=== PATIENT | male | born 1965 ===

== ENCOUNTER → 2020-04-16 | Outpatient (CLI) | payer BC | LOC: ZCOL.LAB 15:58 | DX: Z20.828 Contact with and (suspected) exposure to other viral communicable diseases (principal) ==

== ENCOUNTER 2021-09-06 06:54 | Day surgery (SDC) | payer BC ==
[~2021-09-06] VITALS: Ht 190.5 cm; Wt 107.4 kg
[2021-09-06 08:45] VITALS: BP 106/89; PULSE 74; TEMP 97.5
--- NOTE | 2021-09-06 08:45 | NUR ---
Pt to [facility] via cart from [employer]. Pt ambulates to recliner with stand by assistance. Pt awake and alert. Denies pain or nausea. Muffin and water given per pt request. Call light within reach.
[2021-09-06 08:57] VITALS: BP 151/101; PULSE 81; TEMP 97.1
[2021-09-06 09:00] VITALS: BP 134/106; PULSE 76
--- NOTE | 2021-09-06 09:00 | NUR ---
Pt continues to rest. Denies needs. Call light within reach.
[2021-09-06 09:15] VITALS: BP 142/92; PULSE 69
--- NOTE | 2021-09-06 09:15 | NUR ---
Pt continues to rest. Denies needs. Call light within reach.
--- NOTE | 2021-09-06 09:25 | NUR ---
IV site DC instructions reviewed. PT voices understanding. IV site discontinued with all parts intact. Pt up to dress. Call light within reach.
--- NOTE | 2021-09-06 09:35 | NUR ---
Pt escorted to private car via wheel chair. Pt accompanied home by his .
== END 2021-09-06 09:35 | disposition home or self-care (01) ==
LOC: SDCO 06:54
DX: K62.1 Rectal polyp (principal); K57.30 Diverticulosis of large intestine without perforation or abscess without bleeding; R14.0 Abdominal distension (gaseous); F17.210 Nicotine dependence, cigarettes, uncomplicated; Z79.899 Other long term (current) drug therapy
CPT/HCPCS: J2704; J7030

== ENCOUNTER → 2022-02-26 | Outpatient (CLI) | payer BC | LOC: COL.RAD 08:46 | DX: M47.812 Spondylosis without myelopathy or radiculopathy, cervical region (principal); R74.8 Abnormal levels of other serum enzymes | CPT/HCPCS: A9503 ==